=== PATIENT | female | born 1955 | race Two or more races ===

== ENCOUNTER 2023-05-13 07:00 | Emergency (ER) | payer MEDICARE ==
[~2023-05-13] VITALS: Ht 160 cm; Wt 73.6 kg
[2023-05-13 07:43] VITALS: BP 127/78
[2023-05-13] MEDS ORDERED: IBUP-1456 PO (08:25)
== END 2023-05-13 08:41 | disposition home or self-care (01) ==
LOC: EDBD 07:00 → ER 07:00
DX: S00.83XA Contusion of other part of head, initial encounter (principal); R51.9 Headache, unspecified; W18.09XA Striking against other object with subsequent fall, initial encounter; Y93.89 Activity, other specified; Y92.89 Other specified places as the place of occurrence of the external cause; Y99.8 Other external cause status
CPT/HCPCS: 70450